=== PATIENT | female | born 1975 | race Caucasian/White ===

== ENCOUNTER → 2016-11-05 | Outpatient (CLI) | payer BC, OTHER | LOC: ULTRA 09:47 | DX: M79.604 Pain in right leg (principal); M79.89 Other specified soft tissue disorders ==

== ENCOUNTER → 2019-05-04 | Outpatient (CLI) | payer BC, OTHER | LOC: ULTRA 15:58 | DX: E05.90 Thyrotoxicosis, unspecified without thyrotoxic crisis or storm (principal); E04.2 Nontoxic multinodular goiter ==

== ENCOUNTER → 2021-01-05 | Outpatient (CLI) | payer OTHER | LOC: CAT 07:47 | PROVIDERS: ATTEND Family Medicine | DX: Z13.6 Encounter for screening for cardiovascular disorders (principal) ==